=== PATIENT | male | born 2000 | race Two or more races ===

== ENCOUNTER 2025-10-02 13:51 | Emergency (ER) | payer OTHER ==
[~2025-10-02] VITALS: Ht 185.4 cm; Wt 76.7 kg
[2025-10-02 15:54] VITALS: BP 119/76; O2SAT 99
[2025-10-02] MEDS ORDERED: DEXAMETHASONE SODIUM PHOSPHATE 4 MG/ML VIAL IM STA (16:23)
[2025-10-02] MEDS ORDERED: ACETAMINOPHEN 500 MG GEL..CAP PO STA (16:23)
[2025-10-02] MEDS ORDERED: ACETAMINOPHEN 500 MG GEL..CAP PO ONE (17:31)
[2025-10-02] MEDS ORDERED: DEXAMETHASONE SODIUM PHOSPHATE 4 MG/ML VIAL ONE (17:31)
[2025-10-02] MEDS ORDERED: DICLOFENAC POTA50 MG PO (19:02)
[2025-10-02] MEDS ORDERED: ACETAMINOPHEN650 M2 PO (19:02)
== END 2025-10-02 19:58 | disposition home or self-care (01) ==
LOC: ER 13:52
DX: S09.8XXA Other specified injuries of head, initial encounter (principal); W22.8XXA Striking against or struck by other objects, initial encounter; Y93.89 Activity, other specified; Y92.89 Other specified places as the place of occurrence of the external cause